=== PATIENT | male | born 1980 | race Caucasian/White ===

== ENCOUNTER 2020-03-13 14:54 | Outpatient (CLI) | payer BC, SELFPAY ==
--- NOTE | ~2020-03-13 | US_ITS ---
EXAMINATION: US scrotum doppler DATE: 03/13/2020 15:44 INDICATION: Right testicular pain TECHNIQUE: Testicular sonogram utilizing grayscale and Doppler COMPARISON: None. FINDINGS: The right testis measures 5.3 x 2.7 x 2.5 cm. The left testis measures 5.2 x 2.0 x 2.3 cm. There is normal vascular flow to both testes. The right epididymis is normal with normal vascular aimee w. The left epididymis is normal with normal vascular flow. There is no varicocele or hydrocele. IMPRESSION: 1. No sonographic correlate for the patient's symptoms. Reviewed, dictated and finalized at location A.
== END 2020-03-13 14:55 | disposition home or self-care (01) ==
LOC: ANHIMG 15:00
PROVIDERS: PCP Student in an Organized Health Care Education/Training Program; Visit Provider Student in an Organized Health Care Education/Training Program
DX: N50.811 Right testicular pain (principal)
CPT/HCPCS: 76870; 93976

== ENCOUNTER 2021-08-09 18:07 | Emergency (ER) | payer BC, SELFPAY ==
[2021-08-09 18:25] VITALS: BP 139/101; PULSE 72; RESP 16; TEMP 36.7; O2SAT 96
--- NOTE | 2021-08-09 19:01 | ED.WOUNDLAC ---
HPI - Wound/Laceration General Chief Complaint: Wound/Laceration Stated Complaint: lac - right index finger Time Seen by Provider: 08/09/21 18:33 Source: patient Mode of arrival: ambulatory Limitations: no limitations History of Present Illness HPI narrative: This is a 41-year-old male that presents to the emergency department for laceration to the right second finger sustained just prior to arrival. Reports he accidentally cut himself with a glass doing dishes. He is up-to-date on tetanus. Reports bleeding and pain to the area. Denies decreased range of motion or numbness. Review of Systems Review of Systems: CONSTITUTIONAL: Denies fever SKIN: Reports laceration All systems reviewed & are unremarkable except as noted in HPI and below PMFSH Past Medical History Medical History (Updated 08/09/21 @ 20:51 by Estelle Laboy PA-C) No active medical problems Social History Social History (Updated 08/09/21 @ 19:02 by Estelle Laboy PA-C) Substance use: never Exam Narrative: GENERAL: Well-appearing, well-nourished, and in no acute distress. HEAD: Normocephalic, atraumatic. EYES: EOMI. EXTREMITIES: Normal range of motion. No edema. Right second finger proximal phalanx dorsal surface with 2 cm flap laceration into subcutaneous tissue. Normal radial pulses SKIN: Warm, dry, no rash. NEURO: No focal deficits. Alert and oriented x3. PSYCH: Normal mood and affect Course Vital Signs Vital signs: Vital Signs Temperature 98.0 F 08/09/21 18:25 Pulse Rate 72 08/09/21 18:25 Respiratory Rate 16 08/09/21 18:25 Blood Pressure 139/101 H 08/09/21 18:25 Pulse Oximetry 96 08/09/21 18:25 Temperature 98.0 F 08/09/21 18:25 Pulse Rate 72 08/09/21 18:25 Respiratory Rate 16 08/09/21 18:25 Blood Pressure 139/101 H 08/09/21 18:25 Pulse Oximetry 96 08/09/21 18:25 Procedures Laceration Laceration 1: Date: 08/09/21 Time: 20:50 Site: hand Side (If applicable): right Size (cm): 2 Description: flap Depth: simple, single layer Local Anesthetic: lidocaine 1% Amount of anesthesia used (mL): 3 Pre-repair: irrigated ====== Skin Level ====== Skin layer closed with: nylon Size (cm): 4-0 Number of sutures: 3 Technique: simple, interrupted ====== Subcutaneous Layer ====== ====== Muscle Layer ====== ====== Tendon Layer ====== MDM - Wound/Laceration MDM Narrative Medical decision making narrative: Patient presents to the emergency department for laceration to the right second finger sustained just prior to arrival. Wound was irrigated and closed with sutures. Patient is up-to-date on tetanus. He was educated on wound care. He is to follow-up with primary care doctor. He was given warnings to return to the ER Critical Care Time Critical Care Time Critical Care Time: No Discharge Plan Discharge Clinical Impression: Laceration Patient Disposition: Home, Self-Care Condition: Stable Instructions: Care For Your Stitches (ED), Laceration (ED) Additional Instructions: Return to the emergency department if you experience fever, redness or swelling of your wound, abnormal drainage from your wound, or any other symptoms that are concerning to you. Apply antibiotic ointment daily. Do not soak the wound. Clean with mild soap and water daily Follow-up with your primary care doctor for suture removal in 10-14 days. Follow-up/Referrals: Ba,DO Wolfgang [Primary Care Provider] - 2 Weeks
[2021-08-09 21:03] VITALS: BP 132/95; PULSE 70; RESP 16; O2SAT 97
== END 2021-08-09 21:03 | disposition home or self-care (01) ==
PROVIDERS: Emergency Provider Emergency Medicine; PCP Student in an Organized Health Care Education/Training Program
DX: S61.210A Laceration without foreign body of right index finger without damage to nail, initial encounter (principal); W25.XXXA Contact with sharp glass, initial encounter; Y93.G1 Activity, food preparation and clean up
CPT/HCPCS: 12001; 99282

== ENCOUNTER 2022-09-02 13:02 | Emergency (ER) | payer BC, SELFPAY ==
[2022-09-02] VITALS (14 sets, daily range): BP systolic 123–160; BP diastolic 75–88; PULSE 66–88; RESP 11–22; TEMP 36.6; O2SAT 96–99
--- NOTE | ~2022-09-02 | XR_ITS ---
XR chest 2V DATE: 09/02/2022 16:22 INDICATION: Lightheadedness. TECHNIQUE: PA and lateral views COMPARISON: None FINDINGS: Normal heart size. No hilar or mediastinal enlargement. No pulmonary infiltrate or consolid ation, pleural effusion or pulmonary vascular congestion or pneumothorax. Included skeletal structures are unremarkable other than mild levoscoliosis of the thoracic spine. IMPRESSION: No active cardiopulmonary disease Reviewed, dictated and finalized at location A.
--- NOTE | 2022-09-02 13:48 | ECG_ITS ---
Measurements Intervals [place] Rate: 69 P: -4 AL: 157 QRS: 48 QRSD: 86 T: 60 QT: 386 QTc: 414 Interpretive Statements SINUS RHYTHM DELAYED PRECORDIAL R/S TRANSITION BORDERLINE ST-T WAVE ABNORMALITY- INF/HIGH LAT LEADS BASELINE ARTIFACT- I, II, III, AVR BORDERLINE ECG NO PREVIOUS ECG AVAILABLE FOR COMPARISON Electronically Signed On 09-02-2022 14:04:40 CDT by Joseph Martinez D.O.
[2022-09-02 14:07] LABS: Basophils Percent Auto 0.4 % (0.2-1.2); Eosinophils Absolute Auto 0.1 K/mm3 (0-0.3); Eosinophils Percent Auto 1.5 % (0-4.4); Hematocrit 46.5 % (42.0-52.0); Hemoglobin 15.9 g/dL (14.0-18.0); Immature Granulocyte Absolute 0.06 K/mm3 (0.00-0.031); Immature Granulocyte Percent A 0.6 % (0-0.5); Lymphocytes Absolute Auto 2.12 K/mm3 (0.9-3.2); Lymphocytes Percent Auto 22.1 % (18.3-44.2); Mean Corpuscular HGB Conc 34.2 g/dl (32-36); Mean Corpuscular Hemoglobin 29.7 pg (26-34); Mean Corpuscular Volume 86.8 fl (80-100); Monocytes Absolute Auto 1.1 K/mm3 (0.1-0.6); Monocytes Percent Auto 11.2 % (2.6-8.5); Neutrophils Absolute Auto 6.2 K/mm3 (1.3-6.7); Neutrophils Percent Auto 64.2 % (45.5-73.1); Platelet Count Result 274 k/mm3 (150-375); Red Blood Count 5.36 M/mm3 (4.6-6.20); Red Cell Distribution Width 12.7 % (11.5-14.5); White Blood Count 9.6 K/mm3 (4.5-10.0)
[2022-09-02 14:26] LABS: Alanine Aminotransferase 65 U/L (6-50); Albumin Level 4.7 g/dL (3.5-5.1); Alkaline Phosphatase 54 U/L (38-126); Anion Gap 12 mmol/L (8-16); Aspartate Amino Transferase 41 U/L (17-59); Blood Urea Nitrogen 14 mg/dL (9-20); Carbon Dioxide 25 mmol/L (22-30); Chloride 105 mmol/L (98-107); Estimated CRCL calculation 116 ml/min; Estimated Glomerular Filt Rate > 60; Glucose 105 mg/dL (65-110); Potassium 3.6 mmol/L (3.4-5.0); Sodium 142 mmol/L (137-145)
--- NOTE | 2022-09-02 17:34 | ED.GENADULT ---
HPI - General Adult General Chief complaint: Unspecified Stated complaint: dizzy, lightheaded Time Seen by Provider: 09/02/22 15:18 History of Present Illness HPI narrative: This is a 42-year-old male with past medical history of lightheadedness, presenting emergency department with the same. He states over the past couple weeks he has had intermittent episodes of lightheadedness, seen by his primary care doctor without obvious findings. He was advised to return if he had recurrent symptoms. The difference today was he experienced these while sitting. He denies chest pain, loss of consciousness or shortness of breath. Related Data Allergies Allergy/AdvReac Type Severity Reaction Status Date / Time No Known Allergies Allergy Verified 09/02/22 13:03 Review of Systems Review of Systems: CONSTITUTIONAL: Denies fever, chills, or sweats. EYES: Denies visual changes, redness, or discharge. ENT: Denies rhinorrhea, congestion, sore throat, or otalgia. CARDIOVASCULAR: Denies chest pain, palpitations, or edema. RESPIRATORY: Denies cough or dyspnea. GASTROINTESTINAL: Denies abdominal pain, nausea, vomiting, or diarrhea. GENITOURINARY: Denies dysuria or hematuria. SKIN: Denies rash or itching. MUSCULOSKELETAL: Denies back pain, joint pain, or myalgia. NEUROLOGIC: Intermittent lightheadedness denies headache, numbness, dizziness, or weakness. PSYCHIATRIC: Denies anxiety or depression. PMFSH Past Medical History Medical History No active medical problems Social History Social History Substance use: never Exam Narrative: GENERAL: Well-developed, well-nourished, and in no acute distress. HEAD: Normocephalic, atraumatic. EYES: PERRLA and EOMI. ENT: Nares clear, no rhinorrhea or epistaxis. Mucous membranes moist. Oropharynx without tonsillar hypertrophy exudate or other lesions NECK: Supple. No adenopathy or masses. No carotid bruits or JVD CHEST: Clear to auscultation. No respiratory distress. No wheezes rales or rhonchi HEART: Regular rate and rhythm. No murmur heard. Normal peripheral pulses. ABDOMEN: Soft, nontender, nondistended, normal active bowel sounds. EXTREMITIES: Normal range of motion. No edema. SKIN: Warm, dry, no rash. NEURO: No focal deficits. Alert and oriented x3. PSYCH: Normal mood and affect. Course Course Emergency Course: 17:35 - Chemistries unremarkable. EKG unremarkable. Labs remarkable only for AST elevation to 65 and are otherwise normal. Discussed findings with the patient and his spouse who voiced understanding and are comfortable with discharge to his primary care doctor and Holter monitoring. Discussed return emergency precautions including signs or symptoms of ACS and respiratory distress. Vital Signs Vital signs: Vital Signs Temperature 98 F 09/02/22 13:44 Pulse Rate 74 09/02/22 13:44 Respiratory Rate 18 09/02/22 13:44 Blood Pressure 148/81 H 09/02/22 13:44 Pulse Oximetry 98 09/02/22 13:44 Oxygen Delivery Room Air 09/02/22 13:44 Temperature 98 F 09/02/22 13:44 Pulse Rate 71 09/02/22 17:32 Respiratory Rate 11 L 09/02/22 17:32 Blood Pressure 144/81 H 09/02/22 17:02 Pulse Oximetry 99 09/02/22 17:32 Oxygen Delivery Room Air 09/02/22 13:44 Medical Decision Making MDM Narrative Medical decision making narrative: Plan: Imaging, labs, EKG, reassess Differential Diagnosis Differential Diagnosis: Arrhythmia, metabolic abnormality, dehydration, orthostatic hypotension, pneumonia, pneumothorax, other Vital Signs Vital Signs: Vital Signs Temperature 98 F 09/02/22 13:44 Pulse Rate 74 09/02/22 13:44 Respiratory Rate 18 09/02/22 13:44 Blood Pressure 148/81 H 09/02/22 13:44 Pulse Oximetry 98 09/02/22 13:44 Oxygen Delivery Room Air 09/02/22 13:44 Temperature 98 F 09/02/22 13:44 Pulse Rate 71 09/02/22 17:32
== END 2022-09-02 17:46 | disposition home or self-care (01) ==
PROVIDERS: Emergency Medicine; Emergency Provider Preventive Medicine Aerospace Medicine; PCP Student in an Organized Health Care Education/Training Program
DX: R42 Dizziness and giddiness (principal); R94.31 Abnormal electrocardiogram [ECG] [EKG]
CPT/HCPCS: 36415; 71046; 80053; 85025; 93005; 99283